=== PATIENT | female | born 1990 | race American Indian/Alaskan Native ===

== ENCOUNTER 2021-10-06 12:00 | Emergency (ER) | payer MEDICAID ==
[2021-10-06 12:25] VITALS: BP 130/77
--- NOTE | 2021-10-06 13:14 | Emergency Department Report ---
- General Chief Complaint: Sore Throat Stated Complaint: COVID 19 symptoms Time Seen by Provider: 10/06/21 12:27 Source: patient Mode of arrival: Ambulatory Limitations: No Limitations - History of Present Illness Initial Comments: 31-year-old female resents to the ER today with complaints of URI symptoms. Patient is being seen together with her 2 younger daughters for similar sy mptoms. Mom states that the symptoms started about 2 to 3 days ago. She states that the 2-year-old was the first 1 to get sick. She denies any apparent ill contacts or recent travel. Mom states that she has had a dry cough, rhinorrhea, nasal congestion and sore throat. She reports no fever or chills. She reports no shortness of breath, chest pain, GI or symptoms. She has not gotten a COV ID-19 test since his symptoms started. She has not taken a COVID-19 vaccine or the flu vaccine. She denies any significant past medical history. MD Complaint: cough, rhinorrhea, nasal congestion -: Gradual, days(s) (2) - Related Data Allergies Allergy/AdvReac Type Severity Reaction Status Date / Time No Known Allergies Allergy Verified 10/06/21 12:25 ED Review of Systems ROS: Stated complaint: COVID 19 symptoms Other details as noted in HPI Comment: All other systems reviewed and negative Constitutional: denies: chills, fever ENT: throat pain, congestion, other (rhinorrhea) Respiratory: cough. denies: shortness of breath, SOB with exertion, SOB at rest, wheezing Cardiovascular: denies: chest pain, palpitations, dyspnea on exertion, edema, syncope, paroxysmal nocturnal dyspnea Gastrointestinal: denies: abdominal pain, nausea, vomiting, diarrhea, constipation, hematemesis, melena, hematochezia Genitourinary: denies: urgency, dysuria, frequency, hematuria, discharge, abnormal menses, dyspareunia Skin: denies: rash, lesions, change in color, change in hair/nails, pruritus Neurological: denies: headache, weakness, numbness, paresthesias, confusion, abnormal gait, vertigo Psychiatric: denies: anxiety, depression, auditory hallucinations, visual hallucinations, homicidal thoughts, suicidal thoughts Hematological/Lymphatic: denies: easy bleeding, easy bruising, swollen glands ED Physical Exam - General Limitations: No Limitations General appearance: alert, in no apparent distress - Head Head exam: Present: atraumatic, normocephalic, normal inspection - Eye Eye exam: Present: normal appearance, PERRL, EOMI Pupils: Present: normal accommodation - Expanded ENT Exam Expanded Throat exam: Positive: tonsillar erythema. Negative: tonsillomegaly, tonsillar exudate, R peritonsillar mass, L peritonsillar mass - Neck Neck exam: Present: normal inspection, full ROM. Absent: meningismus, lymphadenopathy - Respiratory Respiratory exam: Present: normal lung sounds bilaterally. Absent: respiratory distress, wheezes, rales, rhonchi, stridor - Cardiovascular Cardiovascular Exam: Present: regular rate, normal rhythm, normal heart sounds - GI/Abdominal GI/Abdominal exam: Present: soft. Absent: distended, tenderness, guarding, rebound - Neurological Exam Neurological exam: Present: alert, oriented X3, CN II-XII intact, normal gait - Psychiatric Psychiatric exam: Present: normal affect, normal mood - Skin Skin exam: Present: intact ED Course Vital Signs 10/06/21 10/06/21 12:23 14:25 Temperature 97.2 F L 99.6 F Pulse Rate 87 Respiratory 18 Rate Blood Pressure 130/77 O2 Sat by Pulse 100 Oximetry ED Medical Decision Making - Medical Decision Making Rapid strep and rapid flu negative. The patient is resting comfortably, is alert and in no distress. The patient has normal mental status and is neurologically intact. The patient appears well and there is no significant dehydration. There is no respiratory distress and no signs of systemic toxicity. Suspect viral illness at this time. The history, exam, and current condition do not demonstrate an infectious process such as meningitis, severe pneumonia, retropharyngeal abscess, epiglottitis, sepsis or other serious bacterial infection requiring further testing, treatment, consultation or admission at this time. The vital signs have been stable. [facility] lab results and suspected diagnosis with patient. Informed that she can get an outpatient COVID-19 test done at a local pharmacy or urgent care. The patient's condition is stable and appropriate for discharge. The patient will pursue further outpatient evaluation with the primary care physician or other designated or consulting physician as indicated on the discharge instructions. Critical care attestation.: If time is entered above; I have spent that time in minutes in the direct care of this critically ill patient, excluding procedure time. ED Disposition Clinical Impression: Viral upper respiratory infection Disposition: HOME / SELF CARE / HOMELESS Is pt being admited?: No Does the pt Need Aspirin: No Condition: Stable Instructions: Upper Respiratory Infection, Adult, [id number], Cough, Adult Additional Instructions: Recommend that you take [id number] Robitussin or Mucinex to help your cough. You can also take flonase, and Zyrtec or Claritin from over the counter to help with additional URI symptoms. I recommend that you keep a coolmist you for the minified next your bed. Try to avoid keeping the room to hot. You can take Tylenol and/or ibuprofen as needed for pain. Drink lots of fluids. You can get a COVID-19 test done at a local pharmacy or urgent care. I do recommend that you quarantine at home until you get the results of your test. Follow-up closely with your PCP. Return to the ER if your symptoms changes or worsens in any way. Referrals: [facility] [Provider Group] - 3-5 Days Time of Disposition: 14:06
== END 2021-10-06 14:31 | disposition home or self-care (01) ==
LOC: ED 12:00
DX: J06.9 Acute upper respiratory infection, unspecified (principal)
CPT/HCPCS: 87116; 87400; 87430; 99283